=== PATIENT | male | born 1995 | race Two or more races ===

== ENCOUNTER 2021-01-18 13:10 | Emergency (ER) | payer OTHER ==
[~2021-01-18] VITALS: Ht 175.3 cm; Wt 79.5 kg
[2021-01-18 13:59] VITALS: BP 149/74
== END 2021-01-18 14:40 | disposition home or self-care (01) ==
LOC: EMS 13:22
DX: F91.9 Conduct disorder, unspecified (principal)
CPT/HCPCS: 99283; 99284

== ENCOUNTER 2021-02-07 19:00 | Emergency (ER) | payer OTHER ==
[~2021-02-07] VITALS: Ht 170.2 cm; Wt 77.3 kg
[2021-02-07 19:30] VITALS: BP 146/60
== END 2021-02-07 20:12 | disposition home or self-care (01) ==
LOC: EMS 19:00
DX: F91.9 Conduct disorder, unspecified (principal); F20.9 Schizophrenia, unspecified
CPT/HCPCS: 99284; Z7502

== ENCOUNTER 2021-10-08 21:25 | Emergency (ER) | payer OTHER ==
[~2021-10-08] VITALS: Ht 172.7 cm; Wt 60.0 kg
[2021-10-08 22:40] VITALS: BP 134/86
== END 2021-10-08 23:15 ==
LOC: EMS 21:30
DX: F20.9 Schizophrenia, unspecified (principal)
CPT/HCPCS: 99284; Z7502